=== PATIENT | male | born 1965 | race American Indian/Alaskan Native ===

== ENCOUNTER 2021-06-01 19:38 | Observation (INO) | payer MEDICARE ==
--- NOTE | 2021-06-01 20:31 | Emergency Department Report ---
HPI - General Time Seen by Provider: 06/01/21 20:07 - HPI HPI: 56-year-old -[place]ian male presents to the emergency department via EMS with complaint of a 1 day history of progressively worsening shortness of breath. He has a history of CHF, cardiomyopathy, and previous substance abuse. The patient was here about a week ago for shortness of breath and a CHF exacerbation. He was in a substance abuse program, inpatient, and says that he was not getting his full amount of Lasix. Therefore, he signed out from the facility and went home and took a full 40 mg of Lasix. He denies any chest pain, fever, lower extremity swelling but says "I think my lungs have fluid aga in." ED Past Medical Hx - Past Medical History Previous Medical History?: Yes Hx CVA: Yes Hx Congestive Heart Failure: Yes Hx Asthma: No Additional medical history: PACEMAKER - Social History Smoking Status: Current Every Day Smoker Substance Use Type: Cocaine - Medications Home Medications: Home Medications Medication Instructions Recorded Confirmed Last Taken Type Aspirin [Adult Aspirin] 81 mg PO QDAY 05/25/21 06/01/21 1 Day Ago History ~05/31/21 324 Atorvastatin [Lipitor] 40 mg PO QHS 05/25/21 06/01/21 Unknown History Entresto 24 - 26 mg 24 mg PO BID 05/25/21 06/01/21 Unknown History Furosemide [Lasix] 40 mg PO BID 05/25/21 06/01/21 Unknown History Pantoprazole [Protonix TAB] See Protocol PO QDAY 05/25/21 06/01/21 Unknown History QUEtiapine [SEROquel] 25 mg PO QDAY 05/25/21 06/01/21 Unknown History carvediloL [Coreg] 6.25 mg PO BID 05/25/21 06/01/21 Unknown History traZODone 200 mg PO QHS 05/25/21 06/01/21 Unknown History ED Review of Systems ROS: Stated complaint: DIFFICULTY IN BREATHING Other details as noted in HPI Comment: All other systems reviewed and negative Constitutional: denies: chills, fever Eyes: denies: eye pain, vision change ENT: denies: ear pain, throat pain Respiratory: orthopnea, shortness of breath, SOB with exertion Cardiovascular: denies: chest pain, edema Gastrointestinal: denies: abdominal pain, vomiting Genitourinary: denies: dysuria, discharge Musculoskeletal: denies: back pain, arthralgia Skin: denies: rash, lesions Neurological: denies: headache, weakness Physical Exam - Physical Exam Vital Signs: Vital Signs 06/01/21 19:59 Temperature 97.8 F Pulse Rate 88 Respiratory 24 Rate Blood Pressure 117/80 O2 Sat by Pulse 96 Oximetry Physical Exam: GENERAL: The patient is well-developed well-nourished. HENT: Normocephalic. Atraumatic. Patient has moist mucous membranes. EYES: Extraocular motions are intact. NECK: Supple. Trachea is midline. CHEST/LUNGS: Coarse breath sounds with the chest. There are some tachypnea but no accessory muscle use. HEART/CARDIOVASCULAR: Regular. There is no tachycardia. There is no murmur. ABDOMEN: Abdomen is soft, nontender. Patient has normal bowel sounds. There is no abdominal distention. SKIN: Skin is warm and dry. NEURO: The patient is awake, alert, and oriented. The patient is cooperative. The patient has no focal neurologic deficits. Normal speech. MUSCULOSKELETAL: There is no tenderness or deformity. There is no limitation range of motion. ED Course Vital Signs 06/01/21 19:59 Temperature 97.8 F Pulse Rate 88 Respiratory 24 Rate Blood Pressure 117/80 O2 Sat by Pulse 96 Oximetry ED Medical Decision Making - Lab Data Result diagrams: 06/01/21 20:25 06/01/21 20:25 Lab Results 06/01/21 06/01/21 06/01/21 Range/Units 20:25 20:25 22:00 WBC 5.9 (4.5-11.0) K/mm3 RBC 4.38 (3.65-5.03) M/mm3 Hgb 10.9 L (11.8-15.2) gm/dl Hct 35.4 L (35.5-45.6) % MCV 81 L (84-94) fl MCH 25 L (28-32) pg MCHC 31 L (32-34) % RDW 29.2 H (13.2-15.2) % Plt Count 271 (140-440) K/mm3 Sodium 140 (137-145) mmol/L Potassium 4.0 (3.6-5.0) mmol/L Chloride 105.1 (98-107) mmol/L Carbon Dioxide 24 (22-30) mmol/L Anion Gap 15 mmol/L BUN 11 (9-20) mg/dL Creatinine 0.8 (0.8-1.3) mg/dL Estimated GFR > 60 ml/min BUN/Creatinine Ratio 14 % Glucose 95 (75-100) mg/dL Calcium 9.0 (8.4-10.2) mg/dL Total Bilirubin 0.20 (0.1-1.2) mg/dL AST 26 (5-40) units/L ALT 15 (7-56) units/L Alkaline Phosphatase 72 (35-129) units/L Troponin T 0.028 (0.00-0.029) ng/mL NT-Pro-B Natriuret Pep 5014 H (0-900) pg/mL Total Protein 6.5 (6.3-8.2) g/dL Albumin 3.5 L (3.9-5) g/dL Albumin/Globulin Ratio 1.2 % Urine Color Straw (Yellow) Urine Turbidity Clear (Clear) Urine pH 6.0 (5.0-7.0) Ur Specific [place] 1.008 (1.003-1.030) Urine Protein <15 mg/dl (Negative) mg/dL Urine Glucose (UA) Neg (Negative) mg/dL Urine Ketones Neg (Negative) mg/dL Urine Blood Neg (Negative) Urine Nitrite Neg (Negative) Urine Bilirubin Neg (Negative) Urine Urobilinogen < 2.0 (<2.0) mg/dL Ur Leukocyte Esterase Neg (Negative) Urine WBC (Auto) 1.0 (0.0-6.0) /HPF Urine RBC (Auto) 1.0 (0.0-6.0) /HPF U Epithel Cells (Auto) < 1.0 (0-13.0) /HPF Urine Opiates Screen Urine Methadone Screen Ur Barbiturates Screen Ur Phencyclidine Scrn Ur Amphetamines Screen U Benzodiazepines Scrn Urine Cocaine Screen U Marijuana (THC) Screen 06/01/21 Range/Units 22:00 WBC (4.5-11.0) K/mm3 RBC (3.65-5.03) M/mm3 Hgb (11.8-15.2) gm/dl Hct (35.5-45.6) % MCV (84-94) fl MCH (28-32) pg MCHC (32-34) % RDW (13.2-15.2) % Plt Count (140-440) K/mm3 Sodium (137-145) mmol/L Potassium (3.6-5.0) mmol/L Chloride (98-107) mmol/L Carbon Dioxide (22-30) mmol/L Anion Gap mmol/L BUN (9-20) mg/dL Creatinine (0.8-1.3) mg/dL Estimated GFR ml/min BUN/Creatinine Ratio % Glucose (75-100) mg/dL Calcium (8.4-10.2) mg/dL Total Bilirubin (0.1-1.2) mg/dL AST (5-40) units/L ALT (7-56) units/L Alkaline Phosphatase (35-129) units/L Troponin T (0.00-0.029) ng/mL NT-Pro-B Natriuret Pep (0-900) pg/mL Total Protein (6.3-8.2) g/dL Albumin (3.9-5) g/dL Albumin/Globulin Ratio % Urine Color (Yellow) Urine Turbidity (Clear) Urine pH (5.0-7.0) Ur Specific [place] (1.003-1.030) Urine Protein (Negative) mg/dL Urine Glucose (UA) (Negative) mg/dL Urine Ketones (Negative) mg/dL Urine Blood (Negative) Urine Nitrite (Negative) Urine Bilirubin (Negative) Urine Urobilinogen (<2.0) mg/dL Ur Leukocyte Esterase (Negative) Urine WBC (Auto) (0.0-6.0) /HPF Urine RBC (Auto) (0.0-6.0) /HPF U Epithel Cells (Auto) (0-13.0) /HPF Urine Opiates Screen Presumptive negative Urine Methadone Screen Presumptive negative Ur Barbiturates Screen Presumptive negative Ur Phencyclidine Scrn Presumptive negative Ur Amphetamines Screen Presumptive negative U Benzodiazepines Scrn Presumptive negative Urine Cocaine Screen Presumptive negative U Marijuana (THC) Screen Presumptive negative - EKG Data -: EKG Interpreted by Me - EKG Data When compared to previous EKG there are: no significant change Interpretation: unchanged when compared t (05/25/21), other (Atrial sensed ventricular paced rhythm at 78 bpm, left axis deviation. Prolonged QT and QTc intervals. LVH, no ST elevation IN.) - Radiology Data Radiology results: image reviewed interpreted by me: Chest x-ray shows bilateral patchy opacities consistent with interstitial edema, right greater than left. Mild cardiomegaly. No pneumothorax. No widened mediastinum. - Medical Decision Making This patient presents to the emergency department with a 1 day history of shortness of breath that he says is due to to not receiving his normal and/or full dose of Lasix while doing inpatient drug rehabilitation. He took 40 mg of Lasix earlier today when he discharged himself from the rehabilitation facility. On examination he has some coarse breath sounds bilaterally and tachypnea. Vital signs reassuring including being afebrile and no hypoxia. Chest x-ray shows volume overload with bilateral interstitial edema. Patient was given a dose of aspirin and a further IV 40 mg dose of Lasix. Labs also appear cons istent with a CHF exacerbation and/or decompensated CHF with a BNP greater than 5000 without any renal insufficiency. Patient will be admitted to the hospital for further evaluation and treatment of his except for admission by the hospitalist, Dr. Marie. Critical Care Time: No Critical care attestation.: If time is entered above; I have spent that time in minutes in the direct care of this critically ill patient, excluding procedure time. ED Disposition Clinical Impression: CHF exacerbation Qualifiers: Heart failure type: unspecified Qualified Code(s): I50.9 - Heart failure, unspecified Dyspnea Qualifiers: Dyspnea type: shortness of breath Qualified Code(s): R06.02 - Shortness of breath; R06.00 - Dyspnea, unspecified; R06.01 - Orthopnea Disposition: ADMITTED INPATIENT Is pt being admited?: Yes Condition: Serious Time of Disposition: 00:30
--- NOTE | 2021-06-01 20:44 | XRay Report ---
XR chest 1V ap INDICATION / CLINICAL INFORMATION: SOB. COMPARISON: 05/24/2021 FINDINGS: SUPPORT DEVICES: Unchanged. HEART /PULMONARY VASCULATURE: Unchanged. LUNGS / PLEURA: Slight improvement in diffuse pulmonary airspace disease. Moderate airspace disease r emains within the right mid and lower lung. No sizable pleural effusion. No pneumothorax. IMPRESSION: Improved but moderate persistent pulmonary airspace opacity, greatest in the right lung base. Signer Name: Dong Beth MD Signed: 06/01/2021 8:40 PM Workstation Name: [id number]
[2021-06-01 20:59] LABS: Hematocrit 35.4 % (35.5-45.6); Hemoglobin 10.9 gm/dl (11.8-15.2); Mean Corpuscular HGB Conc 31 % (32-34); Mean Corpuscular Volume 81 fl (84-94); Platelet Count 271 K/mm3 (140-440); Red Blood Count 4.38 M/mm3 (3.65-5.03)
[2021-06-01 21:02] LABS: Red Cell Distribution Width 29.2 % (13.2-15.2)
[2021-06-01 21:12] LABS: Alanine Aminotransferase 15 units/L (7-56); Albumin 3.5 g/dL (3.9-5); BUN/Creatinine Ratio 14; Blood Urea Nitrogen 11 mg/dL (9-20); Hemolysis Index 12
[2021-06-01 22:49] LABS: Bilirubin,Urine NEG (Negative); Blood,Urine NEG (Negative); Color,Urine Straw (Yellow); Protein,Urine <15 mg/dL mg/dL (Negative); Urobilinogen,Urine < 2.0 mg/dL (<2.0)
[2021-06-01 22:57] LABS: Amphetamine Screen,Urine PRESUMPTIVE NEGATIVE; Benzodiazepines Screen,Urine PRESUMPTIVE NEGATIVE; Cannabinoid Screen,Urine PRESUMPTIVE NEGATIVE; Cocaine Screen,Urine PRESUMPTIVE NEGATIVE; Methadone Screen,Urine PRESUMPTIVE NEGATIVE; Opiate Screen,Urine PRESUMPTIVE NEGATIVE
[2021-06-01] MEDS ORDERED: ASPIRIN 81 MG TAB CHEW PO ONE (22:58)
[2021-06-01] MEDS ORDERED: FUROSEMIDE 20 MG/2 ML INJ IV ONE (22:58)
[2021-06-01] MEDS ORDERED: MORPHINE 2 MG/1 ML INJ IV PRN (23:16)
[2021-06-01] MEDS ORDERED: MAGNESIUM HYDROXIDE (MOM) ORAL LIQD UDC PO PRN (23:16)
[2021-06-01] MEDS ORDERED: MORPHINE 4 MG/1 ML INJ IV PRN (23:16)
[2021-06-01] MEDS ORDERED: ACETAMINOPHEN 325 MG TAB PO PRN (23:16)
[2021-06-01] MEDS ORDERED: ONDANSETRON 4 MG/2 ML INJ IV PRN (23:16)
--- NOTE | 2021-06-01 23:25 | History and Physical Report ---
History of Present Illness Date of examination: 06/01/21 Date of admission: 06/01/2021 Chief complaint: Shortness of Breath History of present illness: 56-year-old -[place]ian male with known history of CHF, cardiomyopathy and previous history of substance abuse presenting to the emergency room today complaining of progressive shortness of breath. Patient was seen in the emergency room about a week ago was signed out AGAINST MEDICAL ADVICE because he was not getting the full course of his medications. He denies any fever or chills, no nausea or vomiting and no abdominal pain. Patient denies any sick contacts and no recent travel. Denies any contact with anyone with COVID-19. Work-up in the emergency room today, chest x-ray reveals moderate persistent pulmonary airspace opacity greatest in the right lung base. Labs significant for BNP of 5014. Patient being admitted for CHF exacerbation. Past History Past Medical History: heart failure, stroke Past Surgical History: Other (Pacemaker placement.) Social history: smoking, other (Cocaine use) Family history: no significant family history Medications and Allergies Allergies Allergy/AdvReac Type Severity Reaction Status Date / Time No Known Allergies Allergy Unverified 05/24/21 21:26 Home Medications Medication Instructions Recorded Confirmed Last Taken Type Aspirin [Adult Aspirin] 81 mg PO QDAY 05/25/21 06/01/21 1 Day Ago History ~05/31/21 324 Atorvastatin [Lipitor] 40 mg PO QHS 05/25/21 06/01/21 Unknown History Entresto 24 - 26 mg 24 mg PO BID 05/25/21 06/01/21 Unknown History Furosemide [Lasix] 40 mg PO BID 05/25/21 06/01/21 Unknown History Pantoprazole [Protonix TAB] See Protocol PO QDAY 05/25/21 06/01/21 Unknown History QUEtiapine [SEROquel] 25 mg PO QDAY 05/25/21 06/01/21 Unknown History carvediloL [Coreg] 6.25 mg PO BID 05/25/21 06/01/21 Unknown History traZODone 200 mg PO QHS 05/25/21 06/01/21 Unknown History Active Meds: Active Medications Acetaminophen (Acetaminophen 325 Mg Tab) 650 mg PO Q4H PRN PRN Reason: Pain MILD(1-3)/Fever >100.5/GOMEZ Furosemide (Furosemide 40 Mg/4 Ml Inj) 40 mg IV BID@0600,1800 [facility] Magnesium Hydroxide (Magnesium Hydroxide (Mom) Oral Liqd Udc) 30 ml PO Q4H PRN PRN Reason: Constipation Morphine Sulfate (Morphine 2 Mg/1 Ml Inj) 2 mg IV Q4H PRN PRN Reason: Pain, Moderate (4-6) Morphine Sulfate (Morphine 4 Mg/1 Ml Inj) 4 mg IV Q4H PRN PRN Reason: Pain , Severe (7-10) Ondansetron HCl (Ondansetron 4 Mg/2 Ml Inj) 4 mg IV Q8H PRN PRN Reason: Nausea And Vomiting Sodium Chloride (Sodium Chloride 0.9% 10 Ml Flush Syringe) 10 ml IV BID DAWSON Sodium Chloride (Sodium Chloride 0.9% 10 Ml Flush Syringe) 10 ml IV PRN PRN PRN Reason: LINE FLUSH Review of Systems Constitutional: no fever, no chills Ears, nose, mouth and throat: no nasal congestion, no sore throat Cardiovascular: no chest pain, no palpitations Respiratory: shortness of breath, no cough Gastrointestinal: no abdominal pain, no nausea, no vomiting, no diarrhea Genitourinary Male: no dysuria, no hematuria, no flank pain Musculoskeletal: no neck pain, no low back pain Integumentary: no rash, no pruritis Neurological: no headaches, no confusion Psychiatric: no anxiety, no depression Endocrine: no polyphagia, no polydipsia, no polyuria, no nocturia Exam - Constitutional Vitals: Temp Pulse Resp BP Pulse Ox 98.7 F 68 19 98/67 97 06/01/21 21:59 06/01/21 21:59 06/01/21 21:59 06/01/21 21:59 06/01/21 21:59 General appearance: Present: no acute distress, well-nourished - EENT Eyes: Present: PERRL, EOM intact. Absent: scleral icterus ENT: hearing intact, clear oral mucosa, dentition normal - Neck Neck: Present: supple, normal ROM - Respiratory Respiratory effort: normal Respiratory: bilateral: rales - Cardiovascular Rhythm: regular Heart Sounds: Present: S1 & S2. Absent: gallop, systolic murmur, diastolic murmur, rub, click - Extremities Extremities: no ischemia, pulses intact, pulses symmetrical, No edema, normal temperature, normal color, Full ROM Peripheral Pulses: within normal limits - Abdominal General gastrointestinal: Present: soft, non-tender, non-distended, normal bowel sounds. Absent: mass - Integumentary Integumentary: Present: clear, warm, dry, normal turgor. Absent: rash - Musculoskeletal Musculoskeletal: strength equal bilaterally - Psychiatric Psychiatric: appropriate mood/affect, intact judgment & insight, memory intact, cooperative - Neurologic Neurologic: CNII-XII intact, no focal deficits, moves all extremities HEART Score - HEART Score Troponin: Troponin T 0.028 ng/mL (0.00-0.029) 06/01/21 20:25 Results - Labs CBC & Chem 7: 06/01/21 20:25 06/01/21 20:25 Labs: Abnormal lab results 06/01/21 06/01/21 Range/Units 20:25 20:25 Hgb 10.9 L (11.8-15.2) gm/dl Hct 35.4 L (35.5-45.6) % MCV 81 L (84-94) fl MCH 25 L (28-32) pg MCHC 31 L (32-34) % RDW 29.2 H (13.2-15.2) % NT-Pro-B Natriuret Pep 5014 H (0-900) pg/mL Albumin 3.5 L (3.9-5) g/dL Assessment and Plan - Patient Problems (1) CHF exacerbation Current Visit: Yes Status: Acute Qualifiers: Heart failure type: unspecified Qualified Code(s): I50.9 - Heart failure, unspecified Plan to address problem: Patient admitted and placed on telemetry. We will check serial cardiac enzymes. Will monitor daily weight and also monitor inputs and output. Echocardiogram done on 05/25/2021 showed ejection fraction of 30 to 35%. Consult placed to cardiology for evaluation. (2) CVA (cerebral vascular accident) Current Visit: No Status: Acute Plan to address problem: Stable. (3) Substance abuse Current Visit: No Status: Acute Plan to address problem: Past history of substance abuse. Patient was in a substance abuse program. (4) DVT prophylaxis Current Visit: No Status: Acute Plan to address problem: Patient placed on subcutaneous heparin. (5) Full code status Current Visit: Yes Status: Acute Plan to address problem: Patient is full code.
[2021-06-02 00:38] LABS: Anisocytosis 3+; Basophils % (Manual) 0 % (0.0-1.8); Hypochromasia 1+; Total Cells Counted 100
[2021-06-02 00:39] LABS: Platelet Estimate Consistent w Auto
[2021-06-02] MEDS: HEPARIN 5,000 UNIT/1 ML VIAL SUB-Q SCH ×2 (05:49→13:42)
[2021-06-02] MEDS ORDERED: FUROSEMIDE 40 MG/4 ML INJ IV SCH (06:00)
[2021-06-02 08:32] LABS: Hematocrit 36.4 % (35.5-45.6); Hemoglobin 11.3 gm/dl (11.8-15.2); Mean Corpuscular HGB Conc 31 % (32-34); Mean Corpuscular Volume 81 fl (84-94); Platelet Count 296 K/mm3 (140-440); Red Blood Count 4.51 M/mm3 (3.65-5.03)
[2021-06-02 08:35] LABS: Red Cell Distribution Width 29.2 % (13.2-15.2)
[2021-06-02 08:50] LABS: BUN/Creatinine Ratio 11; Blood Urea Nitrogen 9 mg/dL (9-20); Calcium 9.5 mg/dL (8.4-10.2); Hemolysis Index 2
[2021-06-02 09:14] LABS: Total Cells Counted 100
[2021-06-02 09:15] LABS: Anisocytosis 3+; Hypochromasia 2+; Platelet Estimate Consistent w Auto
[2021-06-02 12:46] VITALS: BP 108/73
--- NOTE | 2021-06-02 13:48 | Discharge Summary ---
Providers - Providers Date of Admission: 06/01/21 23:17 Date of discharge: 06/02/21 Attending physician: VENICE PARKER 06/02/21 05:31 Consult to Physician [CONS] Routine Comment: Consulting Provider: MEGHA CASTANEDA Physician Instructions: Reason For Exam: chf exacerbation Hospitalization Condition: Serious Hospital course: Patient is a 56-year-old male with a past medical history of a CVA, HFrEF, cardiomyopathy s/p BiV, and history of substance abuse who came to the ED for complaint of shortness of breath and bilateral lower extremity edema x1 day prior to admission. Patient reports that he is an anchor facility for treatment for his substance abuse. Patient states that at the facility they were not giving his Lasix as he required and that he became short of breath had dyspnea on exertion, orthopnea since yesterday. EKG shows atrial sensed ventricular paced rhythm 78. No acute ischemic changes. Troponins negative x1. Patient denies any complaint of chest pain. BNP noted to be elevated however BNP lower than previous admission on 05/24/2021. Patient appears euvolemic on exam with clear breath sounds, no bilateral lower extremity edema, patient is able to lay down flat without any complaints of shortness of breath or difficulty breathing Discussed with patient the importance of medication/ diet compliance and importance of stopping crack cocaine use. Patient verbalized understanding and in agreement. Patient was evaluated by cardiology and no further work-up recommended. Patient was recommended to continue his home meds and follow-up with cardiology as an outpatient. Patient verbalized understanding and was discharged home in stable condition with outpatient cardiology follow-up. Echo 05/25/2021-EF 30 to 35%. LV severely dilated. Hypokinesis in the inferior, inferolateral, anterior lateral wall. Right ventricle is normal in size. Right ventricular systolic function is normal. Device lead is present in right ventricle. Moderate to severe mitral regurgitation. Trace tricuspid regurg. Disposition: HOME / SELF CARE / HOMELESS Final Discharge Diagnosis (Prints w/discharge instructions): Acute on chronic systolic HFrEF. Cardiomyopathy s/p BiV. Hypertension. Substance abuse Time spent for discharge: 34 minutes Core Measure Documentation - Palliative Care Palliative Care/ Comfort Measures: Not Applicable - Core Measures Any of the following diagnoses?: heart failure - Heart Failure Discharge Requirements PRIYA/ARB for LVSD if EF <40%: Yes Beta brad at discharge: Yes Exam - Physical Exam Narrative exam: GENERAL: well-developed and well-nourished -Citizen Of [place] male lying on bed appeared to be in no discomfort. HEENT: Normocephalic. Atraumatic. No conjunctival congestion or icterus. Patient has moist mucous membranes. NECK: Supple. Trachea midline. CHEST/LUNGS: Clear to auscultated bilaterally, breathing nonlabored. No wheezes crackles or rhonchi. HEART/CARDIOVASCULAR: Regular in rate and rhythm. S1 and S2 positive. ABDOMEN: Abdomen is soft, nontender. Patient has normal bowel sounds. SKIN: There is no rash. Warm and dry. NEURO: No focal motor deficit. Follows command. MUSCULOSKELETAL: No joint effusion or tenderness. EXTRIMITY: No edema, no cyanosis or clubbing. PSYCH: Cooperative. - Constitutional Vitals: Temp Pulse Resp BP Pulse Ox 98.8 F 78 18 108/73 98 06/02/21 11:34 06/02/21 11:34 06/02/21 11:34 06/02/21 11:34 06/02/21 11:34 Plan Activity: advance as tolerated Weight Bearing Status: Weight Bear as Tolerated Diet: low fat, low salt Additional Instructions: Follow-up game attendant in 1 week. Please maintain dietary and fluid restriction. Abstinence from substance abuse Follow up with: NOA ARCINIEGA [Other] - 7 Days
--- NOTE | 2021-06-02 14:52 | Consultation ---
History of Present Illness Consult date: 06/02/21 Requesting physician: MARIAM CARPENTER Consult reason: congestive heart failure History of present illness: Patient is a 56-year-old male with a past medical history of a CVA, HFrEF, cardiomyopathy s/p BiV, and history of substance abuse who came to the ED for complaint of shortness of breath and bilateral lower extremity edema x1 day prior to admission. Patient received previously seen by our practice during recent admission in end of May for acute on chronic HFrEF. Patient reports that he is an anchor facility for treatment for his substance abuse. Patient states that at the facility they were not giving his Lasix as he required and that he became short of breath had dyspnea on exertion, orthopnea since yesterday. He states he knew he had to come in because he had fluid on him and that he had to be diuresed at the hospital. Of note patient reports that he does not live in this area that he lives about 100 miles away and that he is only in this area for treatment. Patient states that he is no longer returning to anchor facility and that he is found treatment in his facility in his home town [facility]. At time of interview patient reports feeling much better after being diuresed he denies currently feeling shortness of breath, orthopnea, chest pain, or palpitations Cardiology is consulted for CHF Past History Past Medical History: heart failure, stroke Past Surgical History: Other (Pacemaker placement.) Social history: smoking, other (Cocaine use) Family history: no significant family history Medications and Allergies Allergies Allergy/AdvReac Type Severity Reaction Status Date / Time No Known Allergies Allergy Verified 06/02/21 09:23 Home Medications Medication Instructions Recorded Confirmed Last Taken Type Aspirin [Adult Aspirin] 81 mg PO QDAY 05/25/21 06/01/21 1 Day Ago History ~05/31/21 324 Atorvastatin [Lipitor] 40 mg PO QHS 05/25/21 06/01/21 06/01/21 History Pantoprazole [Protonix TAB] See Protocol PO QDAY 05/25/21 06/01/21 06/01/21 History QUEtiapine [SEROquel] 25 mg PO BID 05/25/21 06/02/21 Unknown History carvediloL [Coreg] 6.25 mg PO BID 05/25/21 06/01/21 06/01/21 History Ferrous Sulfate [Iron 325 MG] 325 mg PO TIDWM 06/02/21 06/02/21 06/01/21 History Furosemide [Lasix TAB] 20 mg PO BID 06/02/21 06/02/21 06/01/21 History Sacubitril/Valsartan [Entresto 24 1 each PO BID 06/02/21 06/02/21 06/01/21 Histo ry - 26 mg] busPIRone [Buspar] 20 mg PO TIDWM 06/02/21 06/02/21 06/01/21 History traZODone [Desyrel] 200 mg PO QHS 06/02/21 06/02/21 05/31/21 History Active Meds: Active Medications Acetaminophen (Acetaminophen 325 Mg Tab) 650 mg PO Q4H PRN PRN Reason: Pain MILD(1-3)/Fever >100.5/GOMEZ Furosemide (Furosemide 40 Mg/4 Ml Inj) 40 mg IV BID@0600,1800 [facility] Last Admin: 06/02/21 05:46 Dose: 40 mg Heparin Sodium (Porcine) (Heparin 5,000 Unit/1 Ml Vial) 5,000 unit SUB-Q Q8HR [facility] Last Admin: 06/02/21 13:42 Dose: Not Given Magnesium Hydroxide (Magnesium Hydroxide (Mom) Oral Liqd Udc) 30 ml PO Q4H PRN PRN Reason: Constipation Morphine Sulfate (Morphine 2 Mg/1 Ml Inj) 2 mg IV Q4H PRN PRN Reason: Pain, Moderate (4-6) Morphine Sulfate (Morphine 4 Mg/1 Ml Inj) 4 mg IV Q4H PRN PRN Reason: Pain , Severe (7-10) Ondansetron HCl (Ondansetron 4 Mg/2 Ml Inj) 4 mg IV Q8H PRN PRN Reason: Nausea And Vomiting Sodium Chloride (Sodium Chloride 0.9% 10 Ml Flush Syringe) 10 ml IV BID [facility] Last Admin: 06/02/21 10:21 Dose: 10 ml Sodium Chloride (Sodium Chloride 0.9% 10 Ml Flush Syringe) 10 ml IV PRN PRN PRN Reason: LINE FLUSH Review of Systems Constitutional: no weight loss, no weight gain, no fever, no chills Ears, nose, mouth and throat: no nasal discharge, no sinus pressure, no sinus pain Cardiovascular: orthopnea, edema, shortness of breath, dyspnea on exertion, no chest pain, no palpitations, no rapid/irregular heart beat Respiratory: shortness of breath, dyspnea on exertion Gastrointestinal: no abdominal pain, no nausea, no vomiting Musculoskeletal: no neck stiffness, no neck pain Integumentary: no rash, no pruritis, no redness Neurological: no head injury, no transient paralysis, no paralysis Psychiatric: no anxiety, no memory loss Endocrine: no cold intolerance, no heat intolerance Hematologic/Lymphatic: no easy bruising, no easy bleeding Physical Examination Vital Signs Temp Pulse Resp BP Pulse Ox 97.8 F 88 24 117/80 95 06/01/21 19:59 06/01/21 19:59 06/01/21 19:59 06/01/21 19:59 06/01/21 19:59 General appearance: no acute distress HEENT: Positive: PERRL Neck: Positive: trachea midline Cardiac: Positive: Reg Rate and Rhythm Lungs: Positive: Normal Breath Sounds Neuro: Positive: Grossly Intact Abdomen: Positive: Soft, Active Bowel Sounds Skin: Negative: Rash, Suspicious Lesions, Ulceration Extremities: Present: upper extr. pulses. Absent: edema Results 06/02/21 07:30 06/02/21 07:30 Cardiac Enzymes 06/01/21 06/01/21 06/01/21 Range/Units 20:25 20:25 22:00 WBC 5.9 (4.5-11.0) K/mm3 RBC 4.38 (3.65-5.03) M/mm3 Hgb 10.9 L (11.8-15.2) gm/dl Hct 35.4 L (35.5-45.6) % MCV 81 L (84-94) fl MCH 25 L (28-32) pg MCHC 31 L (32-34) % RDW 29.2 H (13.2-15.2) % Plt Count 271 (140-440) K/mm3 Add Manual Diff Complete Total Counted 100 Seg Neuts % (Manual) 60.0 (40.0-70.0) % Band Neutrophils % 0 % Lymphocytes % (Manual) 37.0 H (13.4-35.0) % Reactive Lymphs % (Man) 0 % Monocytes % (Manual) 2.0 (0.0-7.3) % Eosinophils % (Manual) 1.0 (0.0-4.3) % Basophils % (Manual) 0 (0.0-1.8) % Metamyelocytes % 0 % Myelocytes % 0 % Promyelocytes % 0 % Blast Cells % 0 % Nucleated RBC % Not Reportable Seg Neutrophils # Man 3.5 (1.8-7.7) K/mm3 Band Neutrophils # 0.0 K/mm3 Lymphocytes # (Manual) 2.2 (1.2-5.4) K/mm3 Abs React Lymphs (Man) 0.0 K/mm3 Monocytes # (Manual) 0.1 (0.0-0.8) K/mm3 Eosinophils # (Manual) 0.1 (0.0-0.4) K/mm3 Basophils # (Manual) 0.0 (0.0-0.1) K/mm3 Metamyelocytes # 0.0 K/mm3 Myelocytes # 0.0 K/mm3 Promyelocytes # 0.0 K/mm3 Blast Cells # 0.0 K/mm3 WBC Morphology Not Reportable Hypersegmented Neuts Not Reportable Hyposegmented Neuts Not Reportable Hypogranular Neuts Not Reportable Smudge Cells Not Reportable Toxic Granulation Not Reportable Toxic Vacuolation Not Reportable Dohle Bodies Not Reportable Pelger-Huet Anomaly Not Reportable Sophia Rods Not Reportable Platelet Estimate Consistent w auto Clumped Platelets Not Reportable Plt Clumps, EDTA Not Reportable Large Platelets Not Reportable Giant Platelets Not Reportable Platelet Satelliting Not Reportable Plt Morphology Comment Not Reportable RBC Morphology Not Reportable Dimorphic RBCs Not Reportable Polychromasia Not Reportable Hypochromasia 1+ Poikilocytosis Not Reportable Anisocytosis 3+ Microcytosis Not Reportable Macrocytosis Not Reportable Spherocytes Not Reportable Pappenheimer Bodies Not Reportable Sickle Cells Not Reportable Target Cells Not Reportable Tear Drop Cells Not Reportable Ovalocytes Not Reportable Helmet Cells Not Reportable [place] Bodies Not Reportable [place] Rings Not Reportable Francis Cells Not Reportable Bite Cells Not Reportable Crenated Cell Not Reportable Elliptocytes Not Reportable Acanthocytes (Spur) Not Reportable Rouleaux Not Reportable Hemoglobin C Crystals Not Reportable Schistocytes Not Reportable Malaria parasites Not Reportable [place] Bodies Not Reportable Hem Pathologist Commnt No Sodium 140 (137-145) mmol/L Potassium 4.0 (3.6-5.0) mmol/L Chloride 105.1 (98-107) mmol/L Carbon Dioxide 24 (22-30) mmol/L Anion Gap 15 mmol/L BUN 11 (9-20) mg/dL Creatinine 0.8 (0.8-1.3) mg/dL Estimated GFR > 60 ml/min BUN/Creatinine Ratio 14 % Glucose 95 (75-100) mg/dL POC Glucose (70-105) mg/dL Calcium 9.0 (8.4-10.2) mg/dL Total Bilirubin 0.20 (0.1-1.2) mg/dL AST 26 (5-40) units/L ALT 15 (7-56) units/L Alkaline Phosphatase 72 (35-129) units/L Troponin T 0.028 (0.00-0.029) ng/mL NT-Pro-B Natriuret Pep 5014 H (0-900) pg/mL Total Protein 6.5 (6.3-8.2) g/dL Albumin 3.5 L (3.9-5) g/dL Albumin/Globulin Ratio 1.2 % Urine Color Straw (Yellow) Urine Turbidity Clear (Clear) Urine pH 6.0 (5.0-7.0) Ur Specific [place] 1.008 (1.003-1.030) Urine Protein <15 mg/dl (Negative) mg/dL Urine Glucose (UA) Neg (Negative) mg/dL Urine Ketones Neg (Negative) mg/dL Urine Blood Neg (Negative) Urine Nitrite Neg (Negative) Urine Bilirubin Neg (Negative) Urine Urobilinogen < 2.0 (<2.0) mg/dL Ur Leukocyte Esterase Neg (Negative) Urine WBC (Auto) 1.0 (0.0-6.0) /HPF Urine RBC (Auto) 1.0 (0.0-6.0) /HPF U Epithel Cells (Auto) < 1.0 (0-13.0) /HPF Urine Opiates Screen Urine Methadone Screen Ur Barbiturates Screen Ur Phencyclidine Scrn Ur Amphetamines Screen U Benzodiazepines Scrn Urine Cocaine Screen U Marijuana (THC) Screen Drugs of Abuse Note 06/01/21 06/02/21 06/02/21 Range/Units 22:00 07:30 07:30 WBC 4.1 L (4.5-11.0) K/mm3 RBC 4.51 (3.65-5.03) M/mm3 Hgb 11.3 L (11.8-15.2) gm/dl Hct 36.4 (35.5-45.6) % MCV 81 L (84-94) fl MCH 25 L (28-32) pg MCHC 31 L (32-34) % RDW 29.2 H (13.2-15.2) % Plt Count 296 (140-440) K/mm3 Add Manual Diff Complete Total Counted 100 Seg Neuts % (Manual) 63.0 (40.0-70.0) % Band Neutrophils % 0 % Lymphocytes % (Manual) 25.0 (13.4-35.0) % Reactive Lymphs % (Man) 0 % Monocytes % (Manual) 10.0 H (0.0-7.3) % Eosinophils % (Manual) 1.0 (0.0-4.3) % Basophils % (Manual) 1.0 (0.0-1.8) % Metamyelocytes % 0 % Myelocytes % 0 % Promyelocytes % 0 % Blast Cells % 0 % Nucleated RBC % Not Reportable Seg Neutrophils # Man 2.6 (1.8-7.7) K/mm3 Band Neutrophils # 0.0 K/mm3 Lymphocytes # (Manual) 1.0 L (1.2-5.4) K/mm3 Abs React Lymphs (Man) 0.0 K/mm3 Monocytes # (Manual) 0.4 (0.0-0.8) K/mm3 Eosinophils # (Manual) 0.0 (0.0-0.4) K/mm3 Basophils # (Manual) 0.0 (0.0-0.1) K/mm3 Metamyelocytes # 0.0 K/mm3 Myelocytes # 0.0 K/mm3 Promyelocytes # 0.0 K/mm3 Blast Cells # 0.0 K/mm3 WBC Morphology Not Reportable Hypersegmented Neuts Not Reportable Hyposegmented Neuts Not Reportable Hypogranular Neuts Not Reportable Smudge Cells Not Reportable Toxic Granulation Not Reportable Toxic Vacuolation Not Reportable Dohle Bodies Not Reportable Pelger-Huet Anomaly Not Reportable Sophia Rods Not Reportable Platelet Estimate Consistent w auto Clumped Platelets Not Reportable Plt Clumps, EDTA Not Reportable Large Platelets Not Reportable Giant Platelets Not Reportable Platelet Satelliting Not Reportable Plt Morphology Comment Not Reportable RBC Morphology Not Reportable Dimorphic RBCs Not Reportable Polychromasia Not Reportable Hypochromasia 2+ Poikilocytosis Not Reportable Anisocytosis 3+ Microcytosis Not Reportable Macrocytosis Not Reportable Spherocytes Not Reportable Pappenheimer Bodies Not Reportable Sickle Cells Not Reportable Target Cells Not Reportable Tear Drop Cells Not Reportable Ovalocytes Not Reportable Helmet Cells Not Reportable [place] Bodies Not Reportable [place] Rings Not Reportable Francis Cells Not Reportable Bite Cells Not Reportable Crenated Cell Not Reportable Elliptocytes Not Reportable Acanthocytes (Spur) Not Reportable Rouleaux Not Reportable Hemoglobin C Crystals Not Reportable Schistocytes Not Reportable Malaria parasites Not Reportable [place] Bodies Not Reportable Hem Pathologist Commnt No Sodium 141 (137-145) mmol/L Potassium 3.8 (3.6-5.0) mmol/L Chloride 101.5 (98-107) mmol/L Carbon Dioxide 27 (22-30) mmol/L Anion Gap 16 mmol/L BUN 9 (9-20) mg/dL Creatinine 0.8 (0.8-1.3) mg/dL Estimated GFR > 60 ml/min BUN/Creatinine Ratio 11 % Glucose 87 (75-100) mg/dL POC Glucose (70-105) mg/dL Calcium 9.5 (8.4-10.2) mg/dL Total Bilirubin (0.1-1.2) mg/dL AST (5-40) units/L ALT (7-56) units/L Alkaline Phosphatase (35-129) units/L Troponin T (0.00-0.029) ng/mL NT-Pro-B Natriuret Pep (0-900) pg/mL Total Protein (6.3-8.2) g/dL Albumin (3.9-5) g/dL Albumin/Globulin Ratio % Urine Color (Yellow) Urine Turbidity (Clear) Urine pH (5.0-7.0) Ur Specific [place] (1.003-1.030) Urine Protein (Negative) mg/dL Urine Glucose (UA) (Negative) mg/dL Urine Ketones (Negative) mg/dL Urine Blood (Negative) Urine Nitrite (Negative) Urine Bilirubin (Negative) Urine Urobilinogen (<2.0) mg/dL Ur Leukocyte Esterase (Negative) Urine WBC (Auto) (0.0-6.0) /HPF Urine RBC (Auto) (0.0-6.0) /HPF U Epithel Cells (Auto) (0-13.0) /HPF Urine Opiates Screen Presumptive negative Urine Methadone Screen Presumptive negative Ur Barbiturates Screen Presumptive negative Ur Phencyclidine Scrn Presumptive negative Ur Amphetamines Screen Presumptive negative U Benzodiazepines Scrn Presumptive negative Urine Cocaine Screen Presumptive negative U Marijuana (THC) Screen Presumptive negative Drugs of Abuse Note Disclamer 06/02/21 Range/Units 12:05 WBC (4.5-11.0) K/mm3 RBC (3.65-5.03) M/mm3 Hgb (11.8-15.2) gm/dl Hct (35.5-45.6) % MCV (84-94) fl MCH (28-32) pg MCHC (32-34) % RDW (13.2-15.2) % Plt Count (140-440) K/mm3 Add Manual Diff Total Counted Seg Neuts % (Manual) (40.0-70.0) % Band Neutrophils % % Lymphocytes % (Manual) (13.4-35.0) % Reactive Lymphs % (Man) % Monocytes % (Manual) (0.0-7.3) % Eosinophils % (Manual) (0.0-4.3) % Basophils % (Manual) (0.0-1.8) % Metamyelocytes % % Myelocytes % % Promyelocytes % % Blast Cells % % Nucleated RBC % Seg Neutrophils # Man (1.8-7.7) K/mm3 Band Neutrophils # K/mm3 Lymphocytes # (Manual) (1.2-5.4) K/mm3 Abs React Lymphs (Man) K/mm3 Monocytes # (Manual) (0.0-0.8) K/mm3 Eosinophils # (Manual) (0.0-0.4) K/mm3 Basophils # (Manual) (0.0-0.1) K/mm3 Metamyelocytes # K/mm3 Myelocytes # K/mm3 Promyelocytes # K/mm3 Blast Cells # K/mm3 WBC Morphology Hypersegmented Neuts Hyposegmented Neuts Hypogranular Neuts Smudge Cells Toxic Granulation Toxic Vacuolation Dohle Bodies Pelger-Huet Anomaly Sophia Rods Platelet Estimate Clumped Platelets Plt Clumps, EDTA Large Platelets Giant Platelets Platelet Satelliting Plt Morphology Comment RBC Morphology Dimorphic RBCs Polychromasia Hypochromasia Poikilocytosis Anisocytosis Microcytosis Macrocytosis Spherocytes Pappenheimer Bodies Sickle Cells Target Cells Tear Drop Cells Ovalocytes Helmet Cells [place] Bodies Benkelman Rings Francis Cells Bite Cells Crenated Cell Elliptocytes Acanthocytes (Spur) Rouleaux Hemoglobin C Crystals Schistocytes Malaria parasites [place] Bodies Hem Pathologist Commnt Sodium (137-145) mmol/L Potassium (3.6-5.0) mmol/L Chloride (98-107) mmol/L Carbon Dioxide (22-30) mmol/L Anion Gap mmol/L BUN (9-20) mg/dL Creatinine (0.8-1.3) mg/dL Estimated GFR ml/min BUN/Creatinine Ratio % Glucose (75-100) mg/dL POC Glucose 133 H (70-105) mg/dL Calcium (8.4-10.2) mg/dL Total Bilirubin (0.1-1.2) mg/dL AST (5-40) units/L ALT (7-56) units/L Alkaline Phosphatase (35-129) units/L Troponin T (0.00-0.029) ng/mL NT-Pro-B Natriuret Pep (0-900) pg/mL Total Protein (6.3-8.2) g/dL Albumin (3.9-5) g/dL Albumin/Globulin Ratio % Urine Color (Yellow) Urine Turbidity (Clear) Urine pH (5.0-7.0) Ur Specific [place] (1.003-1.030) Urine Protein (Negative) mg/dL Urine Glucose (UA) (Negative) mg/dL Urine Ketones (Negative) mg/dL Urine Blood (Negative) Urine Nitrite (Negative) Urine Bilirubin (Negative) Urine Urobilinogen (<2.0) mg/dL Ur Leukocyte Esterase (Negative) Urine WBC (Auto) (0.0-6.0) /HPF Urine RBC (Auto) (0.0-6.0) /HPF U Epithel Cells (Auto) (0-13.0) /HPF Urine Opiates Screen Urine Methadone Screen Ur Barbiturates Screen Ur Phencyclidine Scrn Ur Amphetamines Screen U Benzodiazepines Scrn Urine Cocaine Screen U Marijuana (THC) Screen Drugs of Abuse Note CBC 06/01/21 06/02/21 Range/Units 20:25 07:30 WBC 5.9 4.1 L (4.5-11.0) K/mm3 RBC 4.38 4.51 (3.65-5.03) M/mm3 Hgb 10.9 L 11.3 L (11.8-15.2) gm/dl Hct 35.4 L 36.4 (35.5-45.6) % Plt Count 271 296 (140-440) K/mm3 Comprehensive Metabolic Panel 06/01/21 06/02/21 Range/Units 20:25 07:30 Sodium 140 141 (137-145) mmol/L Potassium 4.0 3.8 (3.6-5.0) mmol/L Chloride 105.1 101.5 (98-107) mmol/L Carbon Dioxide 24 27 (22-30) mmol/L BUN 11 9 (9-20) mg/dL Creatinine 0.8 0.8 (0.8-1.3) mg/dL Glucose 95 87 (75-100) mg/dL Calcium 9.0 9.5 (8.4-10.2) mg/dL AST 26 (5-40) units/L ALT 15 (7-56) units/L Alkaline Phosphatase 72 (35-129) units/L Total Protein 6.5 (6.3-8.2) g/dL Albumin 3.5 L (3.9-5) g/dL - Imaging and Cardiology Echo: report reviewed EKG interpretations - Telemetry EKG Rhythm: Paced Pacemaker: ventricular pacing w/capt, normal atrial sensing Assessment and Plan Patient is a 56-year-old male with a past medical history of a CVA, HFrEF, cardiomyopathy s/p BiV, and history of substance abuse who came to the ED for complaint of shortness of breath and bilateral lower extremity edema x1 day prior to admission Acute on chronic HFrEF Cardiomyopathy s/p BiV Hypertension Substance abuse Echo 05/25/2021-EF 30 to 35%. LV severely dilated. Hypokinesis in the inferior, inferolateral, anterior lateral wall. Right ventricle is normal in size. Right ventricular systolic function is normal. Device lead is present in right ventricle. Moderate to severe mitral regurgitation. Trace tricuspid regurg Plan: EKG shows atrial sensed ventricular paced rhythm 78. No acute ischemic changes. Troponins negative x1. Patient denies any complaint of chest pain BNP noted to be elevated however BNP lower than previous admission on 05/24/2021. Patient appears euvolemic on exam with clear breath sounds, no bilateral lower extremity edema, patient is able to lay down flat without any complaints of shortness of breath or difficulty breathing Discussed with patient the importance of medication/ diet compliance and importance of stopping crack cocaine use. Patient verbalized understanding and agreement Cardiac status otherwise stable Patient should follow-up with their primary college hire in 1 to 2 weeks Patient seen in conjunction with Dr. Steve who agrees with this plan of care - Patient Problems (1) Acute on chronic HFrEF (heart failure with reduced ejection fraction) Current Visit: Yes Status: Acute (2) Hypertension Current Visit: Yes Status: Acute (3) Substance abuse Current Visit: No Status: Acute
--- NOTE | 2021-06-03 13:15 | Electrocardiograph Report ---
[facility] Test Date: 2021-06-01 Test Time: 21:43:21 Pat Name: ELI MENDEZ Department: Room: A468 1 Gender: M Manager [employer]: PATTI : 1965 Requested By: MYESHA PAREDES Order Number: [id number] Reading MD: Liliana Machado Measurements Intervals [place] Rate: 78 P: 0 VA: 141 QRS: -44 QRSD: 180 T: 55 QT: 503 QTc: 572 Interpretive Statements Atrial-sensed ventricular-paced rhythm Compared to ECG 05/25/2021 08:15:58 No significant changes Electronically Signed On 06-03-2021 13:14:55 EST by Liliana Machado
== END 2021-06-02 18:16 | disposition home or self-care (01) ==
LOC: ED 19:38 → INTOOBSV 23:17 → 4A 23:17
PROVIDERS: ADMIT Internal Medicine Geriatric Medicine; ATTEND Internal Medicine
DX: I11.0 Hypertensive heart disease with heart failure (principal); I50.23 Acute on chronic systolic (congestive) heart failure; I63.9 Cerebral infarction, unspecified; I42.9 Cardiomyopathy, unspecified; F14.10 Cocaine abuse, uncomplicated; F17.200 Nicotine dependence, unspecified, uncomplicated; R06.00 Dyspnea, unspecified; R29.700 NIHSS score 0; Z86.73 Personal history of transient ischemic attack (TIA), and cerebral infarction without residual deficits; Z95.0 Presence of cardiac pacemaker; Z79.82 Long term (current) use of aspirin; Z79.899 Other long term (current) drug therapy
CPT/HCPCS: 36415; 71045; 80048; 80053; 80307; 81001; 82962; 83880; 84484; 85025; 93005; 93010; 96374; 96376; 99285; G0378; J1940; 85007